=== PATIENT | female | born 1965 | race Caucasian/White ===

== ENCOUNTER 2016-12-12 20:42 | Emergency (ER) | payer OTHER ==
[~2016-12-12] VITALS: Ht 167.6 cm; Wt 74.7 kg
[~2016-12-12 20:42] MED LIST: ALEVE220 MG PO; ATIVAN0.5 MG PO; AUGMENTIN875 MG PO; Aspirin E.C. PO; Atrovent HFA Inhaler IH; B COMPLETE1 EACH PO; BACTRIM,SEPT1 TABLET PO; BENADRYL50 MG PO; BUSPAR30 MG PO; Bactrim,Septra DS 80 PO; Buspar PO; CLARITIN10 M3 PO; Colace PO; DAILY MULTIPLE1 EACH PO; DEPAKENE250 MG PO; DEPAKOTE250 MG PO; DOXYCYCLINE HY100 MG PO; FLONASE16 G1 BOTH NARES; FOLIC ACID1 MG PO; IMODIUM MS REL1 EACH PO; KEFLEX500 MG PO; LAMICTAL100 MG PO; LAMOTRIGINE100 MG PO; LIBRIUM10 MG PO; LIBRIUM25 MG PO; LIDODERM 5% P1 PATCH TD; LISINOPRIL-HCT1 EAC3 PO; LISINOPRIL20 MG PO; LORAZEPAM0.5 MG PO; MORPHINE SULFAT15 M1 PO; MS CONTIN,ORAMO15 M1 PO; Milk Of Magnesia,MOM PO; NAPROSYN500 MG PO; NICOTINE PATCH1 EAC2 TD; OMEPRAZOLE20 MG PO; PERCOCET 10/1 TABLET PO; PERCOCET 5/31 TABLET PO; PERCOCET 7.51 TABLET PO; PRILOSEC20 MG PO; PRINZIDE 20-121 EACH PO; PROAIR HFA8.5 GM IH; PROVENTIL,2.5 MG/3 M IH; Prevacid PO; Proventil,Ventolin H IH; ROBITUSSIN100 MG/5 M PO; SYMBICORT60 INHALA1 IH; SYMBICORT60 INHALAT IH; THIAMINE HCL100 MG PO; TIZANIDINE HCL2 MG PO; TRAMADOL HCL50 MG PO; Ultram PO; VALIUM2 MG PO; VENTOLIN HFA18 GM IH; VISTARIL50 M1 PO; WELLBUTRIN XL150 MG PO; ZANAFLEX2 M1 PO; ZANTAC150 MG PO; ZESTRIL,PRINIVI10 MG PO; ZYRTEC10 M2 PO; ZYRTEC10 M3 PO; Zestoretic,Prinzide PO; ZyrTEC PO
[2016-12-12 21:33] LABS: HEMATOCRIT 37.3 % (36.0-46.0); MCH 32.3 PG (29.0-34.0); MCHC 34.3 G/DL (30.0-36.0); MCV 94.2 FL (83-99); MEAN PLAT.VOLUME 8.6 uM^3 (9.5-12.4); NRBC (%) 0.2 /100 WBC (0-0); PLATELET COUNT 323 K/uL (156-360); RBC DIS.WIDTH-CV 14.4 % (11.8-14.6); RBC DIS.WIDTH-SD 49.6 % (39-53); RED BLOOD COUNT 3.96 M/uL (3.80-5.20); WHITE BLOOD COUNT 10.6 K/uL (4.1-10.2)
[2016-12-12 21:41] LABS: CHLORIDE 99 mEq/L (99-109); POTASSIUM 4.1 mEq/L (3.7-5.4); SODIUM 136 mEq/L (136-147)
[2016-12-12 21:43] LABS: GLUCOSE 95 mg/dL (70-99)
[2016-12-12 21:44] LABS: ANION GAP 14 MEQ/L (2-14)
[2016-12-12 21:47] LABS: GFR ESTIMATE (CALCULATED) > 59 mL/min/; UREA NITROGEN (BUN) 11 mg/dL (9-23)
[2016-12-12 22:07] LABS: TROP-I INTERPRETATION NEGATIVE; TROPONIN-I 0.02 ng/mL (0.0-0.30)
[2016-12-12] MEDS ORDERED: PREDNISONE50 MG PO (23:09)
[2016-12-12] MEDS ORDERED: ZITHROMAX250 MG PO (23:46)
[2016-12-13 00:52] VITALS: BP 130/91
== END 2016-12-13 01:00 | disposition home or self-care (01) ==
LOC: EME 20:42
PROVIDERS: Emergency Medicine
DX: J44.1 Chronic obstructive pulmonary disease with (acute) exacerbation (principal); I12.9 Hypertensive chronic kidney disease with stage 1 through stage 4 chronic kidney disease, or unspecified chronic kidney disease; N18.9 Chronic kidney disease, unspecified; F17.200 Nicotine dependence, unspecified, uncomplicated; Z99.81 Dependence on supplemental oxygen; Z95.5 Presence of coronary angioplasty implant and graft; Z91.040 Latex allergy status; Z88.0 Allergy status to penicillin
CPT/HCPCS: 71020; 80048; 84484; 85027; 93005; 94640; 99281; 99285; J7512

== ENCOUNTER 2017-06-29 19:46 | Emergency (ER) | payer OTHER ==
[~2017-06-29] VITALS: Ht 157.5 cm; Wt 77.9 kg
[~2017-06-29 19:46] MED LIST changes: +PREDNISONE50 MG PO; +ZITHROMAX250 MG PO
[2017-06-29 21:33] VITALS: BP 112/75
[2017-06-29 21:44] LABS: AMPHETAMINE NEGATIVE (500 ng/mL); BENZODIAZEPINES PRESUMPTIVE POSITIVE (150 ng/mL); COCAINE NEGATIVE (150 ng/mL); METHAMPHETAMINE NEGATIVE (500 ng/mL); OPIATES (MORPHINE) PRESUMPTIVE POSITIVE (100 ng/mL); PHENCYCLIDINE NEGATIVE (25 ng/mL); THC CANNABINOIDS NEGATIVE (50 ng/mL)
[2017-06-29 21:45] LABS: ADD MEDTOX COMMENT Y; BARBITURATES NEGATIVE (200 ng/mL); INTERNAL CONTROLS VALID? YES; METHADONE NEGATIVE (200 ng/mL); OXYCODONE NEGATIVE (100 ng/mL); PROPOXYPHENE NEGATIVE (300 ng/mL); TRICYCLIC ANTIDEPRESSANTS NEGATIVE (300 ng/mL)
[2017-06-29 22:20] LABS: BENZODIAZEPINES QUANT VALUE 0 NG/ML; BENZODIAZEPINES, URINE SCREEN Negative (200 ng/mL)
== END 2017-06-29 21:33 | disposition home or self-care (01) ==
LOC: EME → EDBD 19:46 → EME 21:33
DX: F10.129 Alcohol abuse with intoxication, unspecified (principal); J44.9 Chronic obstructive pulmonary disease, unspecified; I12.9 Hypertensive chronic kidney disease with stage 1 through stage 4 chronic kidney disease, or unspecified chronic kidney disease; N18.9 Chronic kidney disease, unspecified; F32.9 Major depressive disorder, single episode, unspecified; G40.909 Epilepsy, unspecified, not intractable, without status epilepticus; K21.9 Gastro-esophageal reflux disease without esophagitis; F41.9 Anxiety disorder, unspecified; F17.200 Nicotine dependence, unspecified, uncomplicated; Z85.44 Personal history of malignant neoplasm of other female genital organs; Z91.040 Latex allergy status; Z88.0 Allergy status to penicillin
CPT/HCPCS: 84999; 99281; 99284

== ENCOUNTER 2017-12-26 09:17 | Emergency (ER) | payer OTHER ==
[~2017-12-26] VITALS: Ht 167.6 cm; Wt 69.4 kg
[2017-12-26 09:21] VITALS: BP 111/73
== END 2017-12-26 09:24 | disposition left against medical advice (07) ==
LOC: EME 09:17
DX: R07.81 Pleurodynia (principal); Z53.21 Procedure and treatment not carried out due to patient leaving prior to being seen by health care provider
CPT/HCPCS: 99281; 99282

== ENCOUNTER 2018-01-17 06:56 | Day surgery (SDC) | payer OTHER ==
[~2018-01-17] VITALS: Ht 167 cm; Wt 67.1 kg
[~2018-01-17 06:56] MED LIST changes: +BENADRYL ALLERG25 MG PO; +CYMBALTA20 MG PO; +INCRUSE ELLI62.5 MCG IH; +LAMICTAL25 MG PO; +SUBUTEX PO; +VISTARIL25 MG PO
[2018-01-17 07:39] VITALS: BP 120/70
[2018-01-17 07:51] LABS: INTER. NORMALIZED RATIO 1.1
[2018-01-17 07:54] LABS: PTT 29.1 SEC (25-37)
[2018-01-17 08:19] LABS: BENZODIAZEPINES, URINE SCREEN POSITIVE (200 ng/mL)
[2018-01-17 11:00] VITALS: BP 127/77
[2018-01-17 11:38] VITALS: BP 128/84
== END 2018-01-17 11:40 | disposition home or self-care (01) ==
LOC: SDC
PROVIDERS: Obstetrics & Gynecology Gynecologic Oncology
PROC: 0HB9XZZ Excision of Perineum Skin, External Approach (ICD-10-PCS; principal; 2018-01-17)
PROC: 0HQAXZZ Repair Inguinal Skin, External Approach (ICD-10-PCS; principal; 2018-01-17)
DX: D07.1 Carcinoma in situ of vulva (principal); R79.1 Abnormal coagulation profile; F10.10 Alcohol abuse, uncomplicated; I10 Essential (primary) hypertension; K21.9 Gastro-esophageal reflux disease without esophagitis; K44.9 Diaphragmatic hernia without obstruction or gangrene; J44.9 Chronic obstructive pulmonary disease, unspecified; F17.200 Nicotine dependence, unspecified, uncomplicated; Z82.49 Family history of ischemic heart disease and other diseases of the circulatory system; Z80.1 Family history of malignant neoplasm of trachea, bronchus and lung; Z80.8 Family history of malignant neoplasm of other organs or systems; Z91.040 Latex allergy status; Z88.8 Allergy status to other drugs, medicaments and biological substances
CPT/HCPCS: 80306 90; 85610; 85730; 88307; G0480; J0131; J0330; J1100; J1170; J1580; J2250; J2405; J3010; J7050; S0030